=== PATIENT | female | born 1970 | race Caucasian/White ===

== ENCOUNTER 2017-10-14 14:50 | Emergency (ER) | payer MEDICAID ==
[~2017-10-14] VITALS: Ht 154.9 cm; Wt 54.4 kg
--- NOTE | 2017-10-14 15:04 | NUR ---
DR EPPERSON AT THE BEDSIDE FOR EVAL AND EXAM.
[2017-10-14] MEDS ORDERED: PROMETHAZINE HCL 25 MG/1 ML VIAL IM ONE (15:15)
[2017-10-14] MEDS ORDERED: HYDROMORPHONE 1 MG/1 ML DISP.SYRIN IM ONE (15:15)
[2017-10-14] MEDS ORDERED: LIDOCAINE HCL 2% 20 ML VIAL TP ONE (15:15)
[2017-10-14] MEDS ORDERED: PROMETHAZINE HCL 25 MG/1 ML VIAL ONE (15:26)
[2017-10-14] MEDS ORDERED: HYDROMORPHONE 2 MG/1 ML DISP.SYRIN ONE (15:26)
[2017-10-14] MEDS ORDERED: SULFAMETH/TRIMETH 800/160 MG TABLET PO ONE (16:00)
[2017-10-14 16:06] VITALS: BP 102/55
[2017-10-14] MEDS ORDERED: SULFAMETH/TRIMETH 800/160 MG TABLET ONE (16:16)
== END 2017-10-14 16:17 | disposition home or self-care (01) ==
LOC: ER 14:51
DX: L02.31 Cutaneous abscess of buttock (principal)
CPT/HCPCS: A4663; J1170; J2550

== ENCOUNTER 2017-10-16 16:58 | Emergency (ER) | payer MEDICAID ==
[~2017-10-16] VITALS: Ht 160 cm; Wt 56.7 kg
[2017-10-16] MEDS ORDERED: SULF1TAB48 PO (17:09)
[2017-10-16] MEDS ORDERED: HYDROMORPHONE 1 MG/1 ML DISP.SYRIN IM ONE (17:30)
[2017-10-16] MEDS ORDERED: PROMETHAZINE HCL 25 MG/1 ML VIAL IM ONE (17:30)
--- NOTE | 2017-10-16 17:31 | NUR ---
Patient discharged to home in stable conditon. Written and verbal after care instructions given to patient. Patient verbalizes understanding of instructions. Patient refused to sign the written discharge papers, witnessed by NARDA Bridges.
[2017-10-16] MEDS ORDERED: PROMETHAZINE HCL 25 MG/1 ML VIAL ONE (17:35)
[2017-10-16] MEDS ORDERED: HYDROMORPHONE 2 MG/1 ML DISP.SYRIN ONE (17:35)
== END 2017-10-16 17:51 | disposition home or self-care (01) ==
LOC: ER 17:00
DX: L02.31 Cutaneous abscess of buttock (principal); Z59.0 Homelessness
CPT/HCPCS: 96372 ×2; 99284; A4663; J1170; J2550

== ENCOUNTER → 2021-06-07 | Emergency (ER) | payer MEDICAID, OTHER ==
[~2021-06-07] VITALS: Ht 154.9 cm; Wt 52.2 kg
[~2021-06-07] MED LIST: ALBU8.5H8 INH; ALBUTEROL SULFATE 2.5 MG/3 ML NEBU ONE; FLUT10.62 INH; IPRATROPIUM BROMIDE 0.5 MG/2.5 ML NEBU ONE; PRED20TA PO; SULF1TAB48 PO; predniSONE 20 MG TABLET ONE
--- NOTE | 2021-06-07 03:10 | NUR ---
Dr. Hinson at bedside for MSE
[2021-06-07] MEDS: ALBUTEROL SULFATE 2.5 MG/3 ML NEBU NEB ONE ×2 (03:33→05:22)
[2021-06-07] MEDS: IPRATROPIUM BROMIDE 0.5 MG/2.5 ML NEBU NEB ONE (03:33)
[2021-06-07] MEDS: predniSONE 10 MG TABLET PO ONE (03:33)
[2021-06-07 03:57] LABS: HEMATOCRIT 39.8 % (31.2-41.9); MEAN CORPUSCULAR HEMOGLOBIN 23.9 uug (24.7-32.8); PLATELET COUNT (AUTO) 351 K/uL (179-408)
[2021-06-07 04:09] LABS: BILIRUBIN,DIRECT 0.1 mg/dL (0.0-0.2); BILIRUBIN,TOTAL 0.2 mg/dL (0.2-1.0); CREATININE 0.9 mg/dL (0.6-1.3); POTASSIUM 4.2 mmol/L (3.5-5.1); TOTAL PROTEIN, SERUM 8.9 g/dL (6.4-8.2)
--- NOTE | 2021-06-07 06:06 | NUR ---
Patient discharged to home in stable condition. Written and verbal after care instructions given. Patient verbalizes understanding of instructions. Stressed follow up or return to ER for worsening s/s. Patient A&O x4, ambulating with steady gait. NAD noted
[2021-06-07 06:10] VITALS: BP 132/82
== END | disposition home or self-care (01) ==
LOC: ER 01:28
DX: J45.901 Unspecified asthma with (acute) exacerbation (principal); F17.210 Nicotine dependence, cigarettes, uncomplicated; Z86.69 Personal history of other diseases of the nervous system and sense organs
CPT/HCPCS: 36415; 71045; 80048; 80076; 85025; 87040; 93005; 94640 ×2; 94664; 99285; J7512; A4663; J3590

== ENCOUNTER 2022-02-18 20:51 | Emergency (ER) | payer OTHER ==
[~2022-02-18] VITALS: Ht 157.5 cm; Wt 52.2 kg
[~2022-02-18 20:51] MED LIST changes: -ALBUTEROL SULFATE 2.5 MG/3 ML NEBU ONE; -IPRATROPIUM BROMIDE 0.5 MG/2.5 ML NEBU ONE; -predniSONE 20 MG TABLET ONE
--- NOTE | 2022-02-18 21:45 | NUR ---
Walked in to ER c/o R buttocks redness and swelling. To room 2B. Seen by Dr. Arizmendi.
[2022-02-18] MEDS ORDERED: VANCOMYCIN IV 1,000 MG in IV DEXTROSE 5% 250 ML IV ONE (22:30)
[2022-02-18] MEDS ORDERED: HYDROMORPHONE 1 MG/1 ML DISP.SYRIN IV ONE (22:30)
[2022-02-18] MEDS ORDERED: PIPERACILLIN SODIUM/TAZOBACTAM 3.375 G in IV DEXTROSE 5% 50 ML IV ONE (22:30)
--- NOTE | 2022-02-18 22:32 | NUR ---
[facility] facesheet and images to be faxed to .
[2022-02-18 22:43] LABS: HEMATOCRIT 35.4 % (31.2-41.9); MEAN CORPUSCULAR HEMOGLOBIN 25.6 uug (24.7-32.8); MEAN CORPUSCULAR VOLUME 75.5 fL (75.5-95.3); PLATELET COUNT (AUTO) 323 K/uL (179-408)
[2022-02-18] MEDS ORDERED: VANCOMYCIN IV 200 ML ONE (22:46)
[2022-02-18] MEDS ORDERED: PIPERACILLIN/TAZOBACTAM/D5W 50 ML IV ONE (22:46)
[2022-02-18 22:54] LABS: POTASSIUM 3.8 mmol/L (3.5-5.1)
[2022-02-18] MEDS ORDERED: HYDROMORPHONE 2 MG/1 ML DISP.SYRIN ONE (23:00)
--- NOTE | 2022-02-18 23:01 | NUR ---
[facility] called back to inform us they are unable to accept patient.
[2022-02-18 23:04] LABS: BILIRUBIN,DIRECT 0.1 mg/dL (0.0-0.2); BILIRUBIN,TOTAL 0.3 mg/dL (0.2-1.0); TOTAL PROTEIN, SERUM 8.2 g/dL (6.4-8.2)
--- NOTE | 2022-02-18 23:10 | NUR ---
BP in the 90 systole prior to Dilaudid administratiion. Dr. Arizmendi informed. NS 1 L hung as per MD order. R buttocks wound Culture obtained and sent to lab. Wound markedly swollen, red and oozing with pus like foul smelling fluids. Dressing applied.
[2022-02-18] MEDS ORDERED: IV NORMAL SALINE 1000 ML BAG IV ONE (23:15)
--- NOTE | 2022-02-18 23:25 | NUR ---
Called [facility] and spoke to Love who states they have no capacity tonight.
--- NOTE | 2022-02-18 23:37 | NUR ---
To CT scan.
--- NOTE | 2022-02-18 23:38 | NUR ---
Vicki ravi in ED - 02/18/22 at 2339 by [id number] Called [facility] transfer center and spoke to Eliceo who states they ar at capacity but can place patient on wait list by faxing facesheet and clinical to ([phone]
--- NOTE | 2022-02-18 23:39 | NUR ---
Called [facility] transfer center and spoke to Eliceo who states they are at capacity but can place patient on wait list by faxing facesheet and clinical to .
--- NOTE | 2022-02-18 23:45 | NUR ---
Called [facility] transfer Center and spoke to Evelyn who requested facesheet and cilinical to be faxed to and stated they are capacity at this time but will take information in case bed will open up.
[2022-02-19] MEDS ORDERED: diphenhydrAMINE 50 MG/1 ML VIAL IV ONE
--- NOTE | 2022-02-19 00:05 | NUR ---
Back from CT scan.
[2022-02-19] MEDS ORDERED: diphenhydrAMINE 50 MG/1 ML VIAL ONE (00:07)
--- NOTE | 2022-02-19 00:13 | NUR ---
Called [facility] [place] , spoke to Vianey who requested for clinical and facesheet to be faxed to
[2022-02-19] MEDS ORDERED: HYDROMORPHONE 2 MG/1 ML DISP.SYRIN ONE (00:34)
--- NOTE | 2022-02-19 00:43 | NUR ---
Called [facility] and spoke to Nikhil who states they ar capacity at this time.
[2022-02-19] MEDS ORDERED: HYDROMORPHONE 1 MG/1 ML DISP.SYRIN IV ONE (00:45)
[2022-02-19] MEDS ORDERED: IV NORMAL SALINE 1000 ML BAG IV ONE (00:45)
--- NOTE | 2022-02-19 00:50 | NUR ---
Ambulated to the BR; voided. Specimen sent to lab.
[2022-02-19 01:39] LABS: *BILIRUBIN,URIN NEGATIVE (NEGATIVE); *BLOOD, URINE NEGATIVE (NEGATIVE); *CLARITY,URINE CLEAR (CLEAR); *COLOR,URINE YELLOW (YELLOW); *KETONES,URINE NEGATIVE (NEGATIVE); *UROBILINOGEN,URINE 0.2 E.U./dl (NORMAL); LEUKOCYTE ESTERASE ,URINE NEGATIVE (NEGATIVE); NITRITE, URINE NEGATIVE (NEGATIVE); PH,URINE 5.5 (5.0-8.0); UGLUCOSE NEGATIVE (NEGATIVE)
[2022-02-19 01:50] LABS: *AMPHETAMINE, URINE POSITIVE (NEGATIVE); *CANNABINOID, URINE NEGATIVE (NEGATIVE); *COCCAINE, URINE NEGATIVE (NEGATIVE); *OPIATE, URINE POSITIVE (NEGATIVE); *PHENCYCLIDINE SCREEN,URINE NEGATIVE (NEGATIVE)
--- NOTE | 2022-02-19 04:00 | NUR ---
Patient sleeping, NAD noted.
[2022-02-19] MEDS ORDERED: PIPERACILLIN SODIUM/TAZOBACTAM 3.375 G in IV DEXTROSE 5% 50 ML IV ONE (05:00)
[2022-02-19] MEDS ORDERED: PIPERACILLIN/TAZOBACTAM/D5W 50 ML IV ONE ×2 (05:12→12:57)
--- NOTE | 2022-02-19 06:53 | NUR ---
Still awaiting for transfer to higher level of care. VS stable.
[2022-02-19] MEDS ORDERED: SULF1TAB48 PO (06:54)
--- NOTE | 2022-02-19 07:10 | NUR ---
Received patient sleeping in stretcher, easily aroused by stimuli. Vitals as follows; BP-101/80 RI-80 RR-18 T-98 SPO2-98% RA. Denies apin od discomfort, nausea/vomiting at the moment.
--- NOTE | 2022-02-19 07:13 | NUR ---
Report given to am RNs.
--- NOTE | 2022-02-19 07:35 | NUR ---
Patient right buttocks abscess was saturated with purulent discharge, changed with dry gauze and applied dressing to secure the affected site.
--- NOTE | 2022-02-19 10:00 | NUR ---
Spoke to [facility] case Amelia), requested to call other hospitals for transfer.
--- NOTE | 2022-02-19 10:19 | NUR ---
Dr Mckee spoke to Dr Whitehead(general surgeon), Dr Whitehead accepted the pt.
--- NOTE | 2022-02-19 11:30 | NUR ---
Patient awake in bed, asked if she can show her bag to list the items in the inventory for possible admission. Patient got mad said "I dont want someone to get into my purse, I want to go home". Patient holding her bag on bedside, explained to patient that no one will take her bag and will just need to list the items for inventory but the patient is still upset and insisting to go home. MD at bedside, explaining the risks and benefits of refusing for admission but the patient stated "I dont care, i want to ".
[2022-02-19] MEDS ORDERED: LORAZEPAM 2 MG/1 ML VIAL IV ONE (11:45)
[2022-02-19] MEDS ORDERED: LORAZEPAM 2 MG/1 ML VIAL ONE (11:47)
[2022-02-19] MEDS ORDERED: PIPERACILLIN SODIUM/TAZOBACTAM 3.375 G in IV DEXTROSE 5% 50 ML IV SCH (13:00)
--- NOTE | 2022-02-19 14:30 | NUR ---
Patient IV site removed aseptically.
--- NOTE | 2022-02-19 14:30 | NUR ---
Per MD, Art said patient not medically cleared. Patient no longer suicidal, denies suicidal thoughts. Patient stated " I want to go home". Patient does not wish to proceed with medical care recommended by Dr. Mckee. Patient given information related to possible complications, up to and including , which could occur as a result of leaving the hospital at this time. Patient verbalizes understanding of risks involved due to leaving against medical advice. Patient has signed AMA form. Patient went home, ambulatory with steady gait.
[2022-02-19 15:00] VITALS: BP 112/80
== END 2022-02-19 14:55 | disposition left against medical advice (07) ==
LOC: ER 20:54
DX: M72.6 Necrotizing fasciitis (principal); D72.829 Elevated white blood cell count, unspecified; F17.210 Nicotine dependence, cigarettes, uncomplicated; F11.10 Opioid abuse, uncomplicated; J45.909 Unspecified asthma, uncomplicated; Z53.29 Procedure and treatment not carried out because of patient's decision for other reasons; Z20.822 Contact with and (suspected) exposure to COVID-19; Z82.49 Family history of ischemic heart disease and other diseases of the circulatory system
CPT/HCPCS: 36415; 74176; 80048; 80076; 80307; 81003; 83605; 84702; 85025; 85730; 87040 ×2; 87070; 87426; 93005; 96361; 96365; 96367; 96375 ×2; 96376; 99285; J1170 ×2; J1200; J2060; J2543 ×3; J3370; J7040

== ENCOUNTER 2022-05-20 15:02 | Emergency (ER) | payer OTHER ==
[~2022-05-20] VITALS: Ht 157.5 cm; Wt 54.4 kg
--- NOTE | 2022-05-20 15:30 | NUR ---
Dr Ford at the bedside for MSE.
[2022-05-20] MEDS ORDERED: WELLBUTRIN (15:37)
[2022-05-20] MEDS ORDERED: TRAZODONE (15:37)
--- NOTE | 2022-05-20 15:40 | NUR ---
Pt refused Lab work and Ct scan, in spite DR Ford requesting pt to stay for treatment and benefits and risks of leaving againt medical advice.
--- NOTE | 2022-05-20 15:42 | NUR ---
Patient does not wish to proceed with medical care recommended by Dr Ford. Patient verbalizes understanding of risks involved due to leaving against medical advice. Patient has signed AMA form.
[2022-05-20 16:03] VITALS: BP 132/78
== END 2022-05-20 15:45 | disposition left against medical advice (07) ==
LOC: ER 15:02
DX: L02.31 Cutaneous abscess of buttock (principal); F11.10 Opioid abuse, uncomplicated; F17.210 Nicotine dependence, cigarettes, uncomplicated; J45.909 Unspecified asthma, uncomplicated; Z86.69 Personal history of other diseases of the nervous system and sense organs
CPT/HCPCS: A4663